=== PATIENT | female | born 1990 | race Native Hawaiian/Other Pacific Islander ===

== ENCOUNTER 2020-04-18 12:46 | Outpatient (CLI) | payer OTHER ==
[2020-04-18 13:52] LABS: PLATELET COUNT 414 K/uL (152-353)
== END 2020-04-18 19:01 | disposition home or self-care (01) ==
LOC: LABW 12:46
PROVIDERS: Nurse Practitioner Family
DX: D72.828 Other elevated white blood cell count (principal); B97.21 SARS-associated coronavirus as the cause of diseases classified elsewhere; Z34.02 Encounter for supervision of normal first pregnancy, second trimester
CPT/HCPCS: 36415; 85007; 85027

== ENCOUNTER 2020-05-02 12:46 | Outpatient (CLI) | payer OTHER ==
[2020-05-02 13:12] LABS: PLATELET COUNT 428 K/uL (152-353)
== END 2020-05-02 19:48 | disposition home or self-care (01) ==
LOC: LABW 12:46
PROVIDERS: ATTEND Nurse Practitioner Family
DX: Z34.83 Encounter for supervision of other normal pregnancy, third trimester (principal); D72.828 Other elevated white blood cell count; D50.8 Other iron deficiency anemias
CPT/HCPCS: 36415; 82607; 82728; 82746; 85027